=== PATIENT | female | born 1990 | race American Indian/Alaskan Native ===

== ENCOUNTER 2021-03-24 01:45 | Inpatient (IN) | payer SELFPAY ==
[2021-03-24] MEDS ORDERED: SODIUM CHLORIDE 0.9% 1000 ML 1,000 ML IV ONE (02:14)
[2021-03-24] MEDS ORDERED: ONDANSETRON 4 MG/2 ML INJ IV ONE (02:14)
[2021-03-24] MEDS ORDERED: KETOROLAC 30 MG/1 ML INJ IV STA (02:15)
[2021-03-24] MEDS ORDERED: HYOSCYAMINE SUBL 0.125 MG TAB SL ONE (02:15)
[2021-03-24 02:25] LABS: Bilirubin,Urine NEG (Negative); Blood,Urine NEG (Negative); Color,Urine Yellow (Yellow); Mucus,Urine FEW /HPF; Protein,Urine <15 mg/dL mg/dL (Negative); Urobilinogen,Urine < 2.0 mg/dL (<2.0); WBC,Urine < 1.0 /HPF (0.0-6.0)
--- NOTE | 2021-03-24 03:13 | Emergency Department Report ---
ED Abdominal Pain HPI - General Chief Complaint: Abdominal Pain Stated Complaint: LOWER ABD PAIN Time Seen by Provider: 03/24/21 02:14 Source: patient Mode of arrival: Ambulatory Limitations: No Limitations - History of Present Illness Initial Comments: 31-year-old female presents emerge department complaining of emerging and progressively worsening abdominal pain of unknown etiology pain is located to the right side and lower abdomen and worse with certain movements and palpation. She tried to take [id number] Gas-X which did not resolve the symptoms states that she is has similar episodes in the past but she is able to resolve with GERD medications but this pain did feel a little bit different. She reports no hemoptysis no hematemesis hematochezia, no diarrhea, no constipation, no fever, chills, sweats. MD Complaint: abdominal pain Severity scale (0 -10): 8 - Related Data Allergies Allergy/AdvReac Type Severity Reaction Status Date / Time No Known Allergies Allergy Unverified 03/24/21 01:59 ED Review of Systems ROS: Stated complaint: LOWER ABD PAIN Other details as noted in HPI Comment: All other systems reviewed and negative ED Past Medical Hx - Past Medical History Previous Medical History?: No - Surgical History Past Surgical History?: No ED Physical Exam - General Limitations: No Limitations General appearance: alert, in no apparent distress - Head Head exam: Present: atraumatic, normocephalic - Eye Eye exam: Present: normal appearance, PERRL, EOMI, scleral icterus Pupils: Present: normal accommodation - ENT ENT exam: Present: normal exam, normal orophraynx, mucous membranes moist, TM's normal bilaterally - Neck Neck exam: Present: normal inspection, full ROM - Respiratory Respiratory exam: Present: normal lung sounds bilaterally. Absent: respiratory distress, wheezes, rales, rhonchi, chest wall tenderness, accessory muscle use - Cardiovascular Cardiovascular Exam: Present: regular rate, normal rhythm. Absent: systolic murmur, diastolic murmur, rubs, gallop - GI/Abdominal GI/Abdominal exam: Present: soft, tenderness (Right lower quadrant and right hypochondriac area with palpation. No rebound tenderness is noted. No Rov[place], no [place], no [place] sign.), normal bowel sounds. Absent: guarding, rebound, hypoactive bowel sounds, organomegaly, mass, pulsatile mass - Extremities Exam Extremities exam: Present: normal inspection - Back Exam Back exam: Present: normal inspection - Neurological Exam Neurological exam: Present: alert, oriented X3 - Psychiatric Psychiatric exam: Present: normal affect, normal mood - Skin Skin exam: Present: warm, dry, intact, normal color. Absent: rash ED Course Vital Signs 03/24/21 03/24/21 01:51 02:37 Temperature 98.1 F Pulse Rate 80 Respiratory 16 18 Rate Blood Pressure 120/63 O2 Sat by Pulse 99 Oximetry - Consultations Consultation #1: 03/24/21 06:28 Plan is to consult general surgery after discussed the case with the radiologist whom advised of the very dilated appendix and strong suspicion for appendicitis and given the found on examination will start patient on antibiotics continue any necessary analgesia control and discussed the case with the general surgery. Attending aware ED Medical Decision Making - Lab Data Result diagrams: 03/24/21 02:56 03/24/21 02:56 Lab Results 03/24/21 03/24/21 03/24/21 Range/Units 02:56 02:56 02:56 WBC 9.8 (4.5-11.0) K/mm3 RBC 4.56 (3.65-5.03) M/mm3 Hgb 13.1 (10.1-14.3) gm/dl Hct 40.3 (30.3-42.9) % MCV 88 (79-97) fl MCH 29 (28-32) pg MCHC 33 (30-34) % RDW 13.1 L (13.2-15.2) % Plt Count 265 (140-440) K/mm3 Lymph % (Auto) 19.8 (13.4-35.0) % Lake % (Auto) 5.9 (0.0-7.3) % Eos % (Auto) 0.6 (0.0-4.3) % Baso % (Auto) 0.4 (0.0-1.8) % Lymph # (Auto) 1.9 (1.2-5.4) K/mm3 [place] # (Auto) 0.6 (0.0-0.8) K/mm3 Eos # (Auto) 0.1 (0.0-0.4) K/mm3 Baso # (Auto) 0.0 (0.0-0.1) K/mm3 Seg Neutrophils % 73.3 H (40.0-70.0) % Seg Neutrophils # 7.2 (1.8-7.7) K/mm3 Sodium 136 L (137-145) mmol/L Potassium 4.1 (3.6-5.0) mmol/L Chloride 102.0 (98-107) mmol/L Carbon Dioxide 25 (22-30) mmol/L Anion Gap 13 mmol/L BUN 6 L (7-17) mg/dL Creatinine 0.6 (0.6-1.2) mg/dL Estimated GFR > 60 ml/min BUN/Creatinine Ratio 10 % Glucose 113 H (65-100) mg/dL Calcium 8.8 (8.4-10.2) mg/dL Total Bilirubin 0.40 (0.1-1.2) mg/dL Direct Bilirubin < 0.2 (0-0.2) mg/dL Indirect Bilirubin 0.2 mg/dL AST 15 (5-40) units/L ALT 17 (7-56) units/L Alkaline Phosphatase 55 (35-129) units/L Total Protein 7.0 (6.3-8.2) g/dL Albumin 3.8 L (3.9-5) g/dL Albumin/Globulin Ratio 1.2 % Lipase 24 (13-60) units/L HCG, Qual Negative (Negative) Urine Color (Yellow) Urine Turbidity (Clear) Urine pH (5.0-7.0) Ur Specific [place] (1.003-1.030) Urine Protein (Negative) mg/dL Urine Glucose (UA) (Negative) mg/dL Urine Ketones (Negative) mg/dL Urine Blood (Negative) Urine Nitrite (Negative) Urine Bilirubin (Negative) Urine Urobilinogen (<2.0) mg/dL Ur Leukocyte Esterase (Negative) Urine WBC (Auto) (0.0-6.0) /HPF Urine RBC (Auto) (0.0-6.0) /HPF U Epithel Cells (Auto) (0-13.0) /HPF Urine Mucus /HPF 03/24/21 Range/Units Unknown WBC (4.5-11.0) K/mm3 RBC (3.65-5.03) M/mm3 Hgb (10.1-14.3) gm/dl Hct (30.3-42.9) % MCV (79-97) fl MCH (28-32) pg MCHC (30-34) % RDW (13.2-15.2) % Plt Count (140-440) K/mm3 Lymph % (Auto) (13.4-35.0) % [place] % (Auto) (0.0-7.3) % Eos % (Auto) (0.0-4.3) % Baso % (Auto) (0.0-1.8) % Lymph # (Auto) (1.2-5.4) K/mm3 [place] # (Auto) (0.0-0.8) K/mm3 Eos # (Auto) (0.0-0.4) K/mm3 Baso # (Auto) (0.0-0.1) K/mm3 Seg Neutrophils % (40.0-70.0) % Seg Neutrophils # (1.8-7.7) K/mm3 Sodium (137-145) mmol/L Potassium (3.6-5.0) mmol/L Chloride (98-107) mmol/L Carbon Dioxide (22-30) mmol/L Anion Gap mmol/L BUN (7-17) mg/dL Creatinine (0.6-1.2) mg/dL Estimated GFR ml/min BUN/Creatinine Ratio % Glucose (65-100) mg/dL Calcium (8.4-10.2) mg/dL Total Bilirubin (0.1-1.2) mg/dL Direct Bilirubin (0-0.2) mg/dL Indirect Bilirubin mg/dL AST (5-40) units/L ALT (7-56) units/L Alkaline Phosphatase (35-129) units/L Total Protein (6.3-8.2) g/dL Albumin (3.9-5) g/dL Albumin/Globulin Ratio % Lipase (13-60) units/L HCG, Qual (Negative) Urine Color Yellow (Yellow) Urine Turbidity Clear (Clear) Urine pH 6.0 (5.0-7.0) Ur Specific [place] 1.010 (1.003-1.030) Urine Protein <15 mg/dl (Negative) mg/dL Urine Glucose (UA) Neg (Negative) mg/dL Urine Ketones Neg (Negative) mg/dL Urine Blood Neg (Negative) Urine Nitrite Neg (Negative) Urine Bilirubin Neg (Negative) Urine Urobilinogen < 2.0 (<2.0) mg/dL Ur Leukocyte Esterase Neg (Negative) Urine WBC (Auto) < 1.0 (0.0-6.0) /HPF Urine RBC (Auto) 1.0 (0.0-6.0) /HPF U Epithel Cells (Auto) 1.0 (0-13.0) /HPF Urine Mucus Few /HPF - Radiology Data Radiology results: report reviewed [facility] [address] [place] [address] Cat Scan Report Signed Patient: REESE SOLIMAN MR#: [id number] 3 : 1990 Acct:[id number] Age/Sex: 31 / F ADM Date: 03/24/21 Loc: ED Attending Dr: Ordering Physician: ELSA KING Date of Service: 03/24/21 Procedure(s): CT abdomen pelvis w con Accession Number(s): [id number] cc: ELSA KING CT ABDOMEN AND PELVIS WITH CONTRAST HISTORY: Abdominal Pain. COMPARISON: None. TECHNIQUE: CT images of the abdomen and pelvis were obtained following administration of intravenous contrast. All CT scans at this location are performed using CT dose reduction for ALARA by means of automated exposure control. CONTRAST: 100 ml of intravenous contrast administered. FINDINGS: Lungs/bones: Lung bases are clear Abdomen/pelvis: Liver, spleen, adrenal glands, and pelvis, gallbladder and upper GI tract appear normal. Bilateral kidneys appear normal.. The appendix is dilated and fluid- filled. Calcifications are noted. Small amount of free fluid is seen in the pelvis. No bowel obstruction is identified. Appendix measures 1.5 cm IMPRESSION: 1. Marked dilatation of the appendix. Calcifications suggesting appendicoliths. Early appendicitis is not excluded. COMMUNICATION: Time of Communication (IRRIGATION SYSTEM OPERATOR/CDT): 440 Signer Name: Kalyan Mason MD Signed: 03/24/2021 5:40 AM Workstation Name: [id number] Transcribed By: CW Dictated By: PASTORA MASON MD Electronically Authenticated By: PASTORA MASON MD Signed Date/Time: 03/24/21539 DD/ 4 TD/TT: Print Cancel Critical care attestation.: If time is entered above; I have spent that time in minutes in the direct care of this critically ill patient, excluding procedure time. ED Disposition Clinical Impression: Appendicitis Disposition: ADMITTED INPATIENT Is pt being admited?: Yes Does the pt Need Aspirin: No Condition: Stable Instructions: Abdominal Pain (ED)
[2021-03-24 03:24] LABS: Basophils % (Auto) 0.4 % (0.0-1.8); Eosinophils # (Auto) 0.1 K/mm3 (0.0-0.4); Eosinophils % (Auto) 0.6 % (0.0-4.3); Hematocrit 40.3 % (30.3-42.9); Hemoglobin 13.1 gm/dl (10.1-14.3); Lymphocytes # (Auto) 1.9 K/mm3 (1.2-5.4); Lymphocytes % (Auto) 19.8 % (13.4-35.0); Mean Corpuscular HGB Conc 33 % (30-34); Mean Corpuscular Volume 88 fl (79-97); Monocytes # (Auto) 0.6 K/mm3 (0.0-0.8); Monocytes % (Auto) 5.9 % (0.0-7.3); Platelet Count 265 K/mm3 (140-440); Red Blood Count 4.56 M/mm3 (3.65-5.03); Red Cell Distribution Width 13.1 % (13.2-15.2)
[2021-03-24 03:43] LABS: Alanine Aminotransferase 17 units/L (7-56); Albumin 3.8 g/dL (3.9-5); Blood Urea Nitrogen 6 mg/dL (7-17); Calcium 8.8 mg/dL (8.4-10.2); Hemolysis Index 3
[2021-03-24 03:44] LABS: BUN/Creatinine Ratio 10; Bilirubin,Direct < 0.2 mg/dL (0-0.2)
--- NOTE | 2021-03-24 05:45 | Cat Scan Report ---
CT ABDOMEN AND PELVIS WITH CONTRAST HISTORY: Abdominal Pain. COMPARISON: None. TECHNIQUE: CT images of the abdomen and pelvis were obtained following administration of intravenous contrast. All CT scans at this location are performed using CT dose reduction for ALARA by means of automated exposure control. CONTRAST: 100 ml of intravenous contrast administered. FINDINGS: Lungs/bones: Lung bases are clear Abdomen/pelvis: Liver, spleen, adrenal glands, and pelvis, gallbladder and upper GI tract appear nor mal. Bilateral kidneys appear normal.. The appendix is dilated and fluid-filled. Calcifications are n oted. Small amount of free fluid is seen in the pelvis. No bowel obstruction is identified. Appendix measures 1.5 cm IMPRESSION: 1. Marked dilatation of the appendix. Calcifications suggesting appendicoliths. Early appendicitis is not excluded. COMMUNICATION: Time of Communication (CLIENT SERVICES MANAGER/CDT): 440 Signer Name: Kalyan Mason MD Signed: 03/24/2021 5:40 AM Workstation Name: [id number]
[2021-03-24] MEDS ORDERED: PIPERACIL/TAZOBACTA 4.5/NS 100 4.5 GM/100 ML VIAL IV ONE (06:24)
[2021-03-24] MEDS ORDERED: MORPHINE 4 MG/1 ML INJ IV PRN (07:31)
[2021-03-24] MEDS ORDERED: MORPHINE 2 MG/1 ML INJ IV PRN (08:00)
[2021-03-24] MEDS ORDERED: ONDANSETRON 4 MG/2 ML INJ IV PRN ×2 (08:00→14:30)
[2021-03-24] MEDS ORDERED: ACETAMINOPHEN 325 MG TAB PO PRN (08:00)
[2021-03-24] MEDS: HEPARIN 5,000 UNIT/1 ML VIAL SUB-Q SCH ×3 (09:04→21:05)
[2021-03-24] MEDS ORDERED: SCOPOLAMINE TRANSDERMAL PATCH 72 HR TD SCH (10:30)
--- NOTE | 2021-03-24 10:32 | Anesthesia Consultation ---
Anesthesia Consult and Med Hx Date of service: 03/24/21 - Airway Anesthetic Teeth Evaluation: Good, Caps (#8 and 9) ROM Head & Neck: Adequate Mental/Hyoid Distance: Adequate Mallampati Class: Class II Intubation Access Assessment: Probably Good - Pre-Operative Health Status ASA Pre-Surgery Classification: ASA1, Emergency Proposed Anesthetic Plan: General - Additional Comments Anesthesia Medical History Comments: acute appendicitis
--- NOTE | 2021-03-24 10:33 | Anesthesia Day of Surgery ---
Anesthesia Day of Surgery - Day of Surgery Patient Examined: Yes Patient H&P Reviewed: Yes Patient is NPO: Yes
--- NOTE | 2021-03-24 10:46 | History and Physical Report ---
History of Present Illness Date of examination: 03/24/21 Date of admission: 03/24/21 06:37 Chief complaint: Abdominal pain History of present illness: 31-year-old female with past medical history of GERD who presents to the emergency department with complaints of abdominal pain. Patient reports the pain in the right lower quadrant. Patient denies any nausea or vomiting. No chest pain or shortness of breath. No headache or visual disturbances. No fever chills. CT scan of the abdomen reveals marked dilatation of the appendix and calcifications suggestive of appendicoliths and appendicitis. Past History Past Medical History: GERD Past Surgical History: No surgical history Social history: no significant social history Family history: no significant family history Medications and Allergies Allergies Allergy/AdvReac Type Severity Reaction Status Date / Time No Known Allergies Allergy Verified 03/24/21 06:38 Active Meds: Active Medications Acetaminophen (Acetaminophen 325 Mg Tab) 650 mg PO Q4H PRN PRN Reason: Pain MILD(1-3)/Fever >100.5/DONG Heparin Sodium (Porcine) (Heparin 5,000 Unit/1 Ml Vial) 5,000 unit SUB-Q Q8HR [facility] Last Admin: 03/24/21 09:04 Dose: 5,000 unit Documented by: Sodium Chloride (Nacl 0.9% 1000 Ml) 1,000 mls @ 100 mls/hr IV DIRECT ZENA Piperacillin Sod/Tazobactam Sod (Zosyn/Ns 4.5gm/100ml) 4.5 gm in 100 mls @ 200 mls/hr IV Q6H [facility]; Protocol Morphine Sulfate (Morphine 2 Mg/1 Ml Inj) 1 mg IV Q4H PRN PRN Reason: Pain, Moderate (4-6) Morphine Sulfate (Morphine 2 Mg/1 Ml Inj) 2 mg IV Q4H PRN PRN Reason: Pain , Severe (7-10) Ondansetron HCl (Ondansetron 4 Mg/2 Ml Inj) 4 mg IV Q8H PRN PRN Reason: Nausea And Vomiting Scopolamine (Scopolamine Transdermal Patch 72 Hr) 1 each TD ONCE@1030 [facility] Stop: 03/24/21 20:00 Sodium Chloride (Sodium Chloride 0.9% 10 Ml Flush Syringe) 10 ml IV BID [facility] Last Admin: 03/24/21 10:17 Dose: 10 ml Documented by: Sodium Chloride (Sodium Chloride 0.9% 10 Ml Flush Syringe) 10 ml IV PRN PRN PRN Reason: LINE FLUSH Review of Systems All systems: negative Exam - Constitutional Vitals: Temp Pulse Resp BP Pulse Ox 98.1 F 80 18 120/63 100 03/24/21 01:51 03/24/21 01:51 03/24/21 07:25 03/24/21 01:51 03/24/21 07:25 General appearance: Present: no acute distress, well-nourished - EENT Eyes: Present: PERRL ENT: hearing intact, clear oral mucosa - Neck Neck: Present: supple, normal ROM - Respiratory Respiratory effort: normal Respiratory: bilateral: CTA - Cardiovascular Heart Sounds: Present: S1 & S2. Absent: rub, click - Extremities Extremities: pulses symmetrical, No edema Peripheral Pulses: within normal limits - Abdominal General gastrointestinal: Present: soft, non-tender, non-distended, normal bowel sounds Female genitourinary: Present: normal - Integumentary Integumentary: Present: clear, warm, dry - Musculoskeletal Musculoskeletal: gait normal, strength equal bilaterally - Psychiatric Psychiatric: appropriate mood/affect, intact judgment & insight - Neurologic Neurologic: CNII-XII intact, moves all extremities Results - Labs CBC & Chem 7: 03/24/21 02:56 03/24/21 02:56 Labs: Laboratory Last Values WBC 9.8 K/mm3 (4.5-11.0) 03/24/21 02:56 RBC 4.56 M/mm3 (3.65-5.03) 03/24/21 02:56 Hgb 13.1 gm/dl (10.1-14.3) 03/24/21 02:56 Hct 40.3 % (30.3-42.9) 03/24/21 02:56 MCV 88 fl (79-97) 03/24/21 02:56 MCH 29 pg (28-32) 03/24/21 02:56 MCHC 33 % (30-34) 03/24/21 02:56 RDW 13.1 % (13.2-15.2) L 03/24/21 02:56 Plt Count 265 K/mm3 (140-440) 03/24/21 02:56 Lymph % (Auto) 19.8 % (13.4-35.0) 03/24/21 02:56 [place] % (Auto) 5.9 % (0.0-7.3) 03/24/21 02:56 Eos % (Auto) 0.6 % (0.0-4.3) 03/24/21 02:56 Baso % (Auto) 0.4 % (0.0-1.8) 03/24/21 02:56 Lymph # (Auto) 1.9 K/mm3 (1.2-5.4) 03/24/21 02:56 [place] # (Auto) 0.6 K/mm3 (0.0-0.8) 03/24/21 02:56 Eos # (Auto) 0.1 K/mm3 (0.0-0.4) 03/24/21 02:56 Baso # (Auto) 0.0 K/mm3 (0.0-0.1) 03/24/21 02:56 Seg Neutrophils % 73.3 % (40.0-70.0) H 03/24/21 02:56 Seg Neutrophils # 7.2 K/mm3 (1.8-7.7) 03/24/21 02:56 Sodium 136 mmol/L (137-145) L 03/24/21 02:56 Potassium 4.1 mmol/L (3.6-5.0) 03/24/21 02:56 Chloride 102.0 mmol/L (98-107) 03/24/21 02:56 Carbon Dioxide 25 mmol/L (22-30) 03/24/21 02:56 Anion Gap 13 mmol/L 03/24/21 02:56 BUN 6 mg/dL (7-17) L 03/24/21 02:56 Creatinine 0.6 mg/dL (0.6-1.2) 03/24/21 02:56 Estimated GFR > 60 ml/min 03/24/21 02:56 BUN/Creatinine Ratio 10 % 03/24/21 02:56 Glucose 113 mg/dL (65-100) H 03/24/21 02:56 Calcium 8.8 mg/dL (8.4-10.2) 03/24/21 02:56 Total Bilirubin 0.40 mg/dL (0.1-1.2) 03/24/21 02:56 Direct Bilirubin < 0.2 mg/dL (0-0.2) 03/24/21 02:56 Indirect Bilirubin 0.2 mg/dL 03/24/21 02:56 AST 15 units/L (5-40) 03/24/21 02:56 ALT 17 units/L (7-56) 03/24/21 02:56 Alkaline Phosphatase 55 units/L (35-129) 03/24/21 02:56 Total Protein 7.0 g/dL (6.3-8.2) 03/24/21 02:56 Albumin 3.8 g/dL (3.9-5) L 03/24/21 02:56 Albumin/Globulin Ratio 1.2 % 03/24/21 02:56 Lipase 24 units/L (13-60) 03/24/21 02:56 HCG, Qual Negative (Negative) 03/24/21 02:56 Urine Color Yellow (Yellow) 03/24/21 Unknown Urine Turbidity Clear (Clear) 03/24/21 Unknown Urine pH 6.0 (5.0-7.0) 03/24/21 Unknown Ur Specific [place] 1.010 (1.003-1.030) 03/24/21 Unknown Urine Protein <15 mg/dl mg/dL (Negative) 03/24/21 Unknown Urine Glucose (UA) Neg mg/dL (Negative) 03/24/21 Unknown Urine Ketones Neg mg/dL (Negative) 03/24/21 Unknown Urine Blood Neg (Negative) 03/24/21 Unknown Urine Nitrite Neg (Negative) 03/24/21 Unknown Urine Bilirubin Neg (Negative) 03/24/21 Unknown Urine Urobilinogen < 2.0 mg/dL (<2.0) 03/24/21 Unknown Ur Leukocyte Esterase Neg (Negative) 03/24/21 Unknown Urine WBC (Auto) < 1.0 /HPF (0.0-6.0) 03/24/21 Unknown Urine RBC (Auto) 1.0 /HPF (0.0-6.0) 03/24/21 Unknown U Epithel Cells (Auto) 1.0 /HPF (0-13.0) 03/24/21 Unknown Urine Mucus Few /HPF 03/24/21 Unknown Assessment and Plan Assessment and plan: Acute appendicitis. Await general surgery evaluation. Patient reportedly is scheduled to undergo appendectomy. Continue supportive care postoperatively. Continue IV antibiotics of Zosyn. GERD. PPI.
--- NOTE | 2021-03-24 11:15 | Consultation ---
History of Present Illness Consult date: 03/24/21 Reason for consult: abdominal pain Chief complaint: Abdominal pain - History of present illness History of present illness: 31-year-old female with no past medical history who presents to the emergency ro om with 1 day history of worsening lower abdominal pain. The patient states the pain was first present in the suprapubic area and then migrated to the right lower quadrant and now is localized. The pain is sharp. No alleviating or exacerbating factors. The patient did try Gas-X which did not help. She has never had pain like this before. She admits to nausea and vomiting (nonbilious/nonbloody). No fevers or chills, chest pain, shortness of breath. Work-up in the ER included a CT scan which revealed a dilated appendix with a fecalith consistent with appendicitis. Past History Past Medical History: GERD Past Surgical History: No surgical history Social history: no significant social history Family history: no significant family history Medications and Allergies Allergies Allergy/AdvReac Type Severity Reaction Status Date / Time No Known Allergies Allergy Verified 03/24/21 06:38 Active Meds: Active Medications Acetaminophen (Acetaminophen 325 Mg Tab) 650 mg PO Q4H PRN PRN Reason: Pain MILD(1-3)/Fever >100.5/DONG Heparin Sodium (Porcine) (Heparin 5,000 Unit/1 Ml Vial) 5,000 unit SUB-Q Q8HR [facility] Last Admin: 03/24/21 09:04 Dose: 5,000 unit Documented by: Sodium Chloride (Nacl 0.9% 1000 Ml) 1,000 mls @ 100 mls/hr IV DIRECT [facility] Piperacillin Sod/Tazobactam Sod (Zosyn/Ns 4.5gm/100ml) 4.5 gm in 100 mls @ 200 mls/hr IV Q6H [facility]; Protocol Morphine Sulfate (Morphine 2 Mg/1 Ml Inj) 1 mg IV Q4H PRN PRN Reason: Pain, Moderate (4-6) Morphine Sulfate (Morphine 2 Mg/1 Ml Inj) 2 mg IV Q4H PRN PRN Reason: Pain , Severe (7-10) Ondansetron HCl (Ondansetron 4 Mg/2 Ml Inj) 4 mg IV Q8H PRN PRN Reason: Nausea And Vomiting Scopolamine (Scopolamine Transdermal Patch 72 Hr) 1 each TD ONCE@1030 [facility] Stop: 03/24/21 20:00 Sodium Chloride (Sodium Chloride 0.9% 10 Ml Flush Syringe) 10 ml IV BID [facility] Last Admin: 03/24/21 10:17 Dose: 10 ml Documented by: Sodium Chloride (Sodium Chloride 0.9% 10 Ml Flush Syringe) 10 ml IV PRN PRN PRN Reason: LINE FLUSH Review of Systems All systems: negative (10 point ROS performed and negative except for that listed in HPI) Exam Vital Signs Temp Pulse Resp BP Pulse Ox 98.1 F 80 16 120/63 99 03/24/21 01:51 03/24/21 01:51 03/24/21 01:51 03/24/21 01:51 03/24/21 01:51 Narrative exam: Gen.: Awake, alert, oriented x3. No apparent distress ENT: Trachea midline. No lymphadenopathy. No scleral icterus or conjunctival pallor CV: S1, S2 present Respiratory: No audible wheezes Abdomen: Soft, nondistended, right lower quadrant tenderness to palpation. Positive rebound. No guarding or rigidity Extremities: No clubbing, cyanosis, edema Results - Labs 03/24/21 02:56 03/24/21 02:56 Abnormal lab results 03/24/21 03/24/21 Range/Units 02:56 02:56 RDW 13.1 L (13.2-15.2) % Seg Neutrophils % 73.3 H (40.0-70.0) % Sodium 136 L (137-145) mmol/L BUN 6 L (7-17) mg/dL Glucose 113 H (65-100) mg/dL Albumin 3.8 L (3.9-5) g/dL Diabetes panel 03/24/21 Range/Units 02:56 Sodium 136 L (137-145) mmol/L Potassium 4.1 (3.6-5.0) mmol/L Chloride 102.0 (98-107) mmol/L Carbon Dioxide 25 (22-30) mmol/L BUN 6 L (7-17) mg/dL Creatinine 0.6 (0.6-1.2) mg/dL Glucose 113 H (65-100) mg/dL Calcium 8.8 (8.4-10.2) mg/dL AST 15 (5-40) units/L ALT 17 (7-56) units/L Alkaline Phosphatase 55 (35-129) units/L Total Protein 7.0 (6.3-8.2) g/dL Albumin 3.8 L (3.9-5) g/dL Calcium panel 03/24/21 Range/Units 02:56 Calcium 8.8 (8.4-10.2) mg/dL Albumin 3.8 L (3.9-5) g/dL Pituitary panel 03/24/21 Range/Units 02:56 Sodium 136 L (137-145) mmol/L Potassium 4.1 (3.6-5.0) mmol/L Chloride 102.0 (98-107) mmol/L Carbon Dioxide 25 (22-30) mmol/L BUN 6 L (7-17) mg/dL Creatinine 0.6 (0.6-1.2) mg/dL Glucose 113 H (65-100) mg/dL Calcium 8.8 (8.4-10.2) mg/dL Adrenal panel 03/24/21 Range/Units 02:56 Sodium 136 L (137-145) mmol/L Potassium 4.1 (3.6-5.0) mmol/L Chloride 102.0 (98-107) mmol/L Carbon Dioxide 25 (22-30) mmol/L BUN 6 L (7-17) mg/dL Creatinine 0.6 (0.6-1.2) mg/dL Glucose 113 H (65-100) mg/dL Calcium 8.8 (8.4-10.2) mg/dL Total Bilirubin 0.40 (0.1-1.2) mg/dL AST 15 (5-40) units/L ALT 17 (7-56) units/L Alkaline Phosphatase 55 (35-129) units/L Total Protein 7.0 (6.3-8.2) g/dL Albumin 3.8 L (3.9-5) g/dL - Imaging CT scan - abdomen: report reviewed, image reviewed CT scan - pelvis: report reviewed, image reviewed Assessment and Plan 31-year-old female with acute appendicitis Plan: 1. NPO 2. IVF 3. IV abx 4. prn pain control 5. DVT ppx 6. Recommend appendectomy. I discussed all risks, benefits, alternatives to surgery with the patient. All questions answered and consent obtained. We will proceed to the OR today. Patient tried to reach multiple family members while I was in the room with her without success. She will notify her family about plans for surgery. Thank you for this consultation. Please call with any questions or concerns. Evaluation and treatment of this patient was during the time of the national and state emergency arising from COVID19 coronavirus pandemic. Treatment and procedures performed meet the current and available best practice and guidelines for patient during the COVID pandemic.
[2021-03-24] MEDS ORDERED: BUPIVACAINE/PF (0.5%) 5 MG/1 ML 30 ML VIAL INFILTRATI ONE ×2 (13:48→15:11)
[2021-03-24] MEDS ORDERED: LIDOCAINE (1%) 10 MG/1 ML VIAL 20 ML MDV ONE (13:48)
[2021-03-24] MEDS ORDERED: ROCURONIUM 50 MG/5 ML INJ IV ONE (14:24)
[2021-03-24] MEDS ORDERED: LIDOCAINE MPF (2%) 20 MG/1 ML VIAL 5 ML ONE (14:24)
[2021-03-24] MEDS ORDERED: propofoL 200 MG/20 ML VIAL IV ONE (14:25)
[2021-03-24] MEDS ORDERED: fentaNYL 100 MCG/2 ML INJ ONE (14:25)
[2021-03-24] MEDS ORDERED: dexAMETHasone 20 MG/5 ML VIAL ONE (14:30)
[2021-03-24] MEDS ORDERED: ONDANSETRON 4 MG/2 ML INJ ONE (14:30)
[2021-03-24] MEDS ORDERED: KETOROLAC 30 MG/1 ML INJ ONE (14:30)
[2021-03-24] MEDS ORDERED: HYDROmorphone 1 MG/1 ML INJ IV PRN (14:30)
[2021-03-24] MEDS ORDERED: LACTATED RINGERS 1,000 ML ONE (14:34)
[2021-03-24] MEDS ORDERED: LIDOCAINE (1%) 10 MG/1 ML VIAL 20 ML MDV INFILTRATI ONE (15:11)
[2021-03-24] MEDS ORDERED: SODIUM CHLORIDE 0.9% IRR 1,500 ML BOTTLE IR ONE (15:11)
--- NOTE | 2021-03-24 15:53 | Operative Report ---
Operative Report Operative Report: Date of operation: 03/24/2021 Preoperative diagnosis: acute appendicitis Postoperative diagnosis: acute appendicitis Procedure performed: Laparoscopic appendectomy Surgeon: Conner Garza DO Anesthesia: GETA Findings: Entire appendix was dilated, thickened, inflamed without evidence of perforation EBL:<10cc Specimen: appendix Disposition/Condition: stable to PACU HPI and indication: 31 yo F who presented to ER with RLQ pain, n/v. She was found to have acute appendicitis on CT scan. Appendectomy was recommended. All risks, benefits, alternatives to surgery were discussed with the patient questions answered. Consent was obtained. Procedure in detail: Patient was identified in the preop area and taken back to the OR and placed on the OR table in supine position. After anesthesia was induced a gottlieb catheter was steriley placed by the circulating nurse. The left arm was tucked and all bony prominences padded appropriately. The abdomen was prepped and draped in the usual sterile fashion and a timeout performed. Local anesthetic was infiltrated into all skin incision sites. Of note there was an incidental small fat-containing umbilical hernia already present A supraumbilical incision was made and veress needle inserted. The positioning of the veress needle was confirmed using the saline drop test and the abdomen insufflated to 15 mmHg without incident. The Veress needle was then removed and a 5mm Optiview trocar was placed through the supraumbilical incision. The abdomen was inspected and no underlying injury to the abdominal structures was identified. There were omental adhesions to the right lower quadrant as well as the umbilical area. The patient was placed in Trendelenburg and tilted to the left. The appendix was identified. A 12 mm LLQ trocar and 5 mm suprapubic trocar were placed under direct visualization. The appendix was noted to be dilated, inflamed and thickened. No evidence of perforation. There was physiologic free fluid in the pelvis. Omental adhesions down using the harmonic. Embryologic adhesions from the appendix to the lateral abdominal wall and cecum were dissected very meticulously using the harmonic scalpel. The mesentery of the appendix was ligated using the harmonic scalpel. The base of the appendix was transected using an ethicon flex stapler 45mm white load. The appendix was placed into an endocatch bag and removed via the 12 mm port. This was passed off the table as specimen. The staple line and mesentery were then inspected and no bleeding visualized. The staple line was complete and flush against the cecum. The patient was placed in neutral position. The 12 mm port fascia was closed with a single interrupted 0 vicryl stitch using the Jasson Greene device. The 5 mm port was removed and the 0 Vicryl fascial stitch placed using the Jasson Greene. The remaining port was removed under direct visualization and the abdomen desufflated. All skin incisions were closed using 4-0 monocryl subcuticular stitches and skin glue. Local anesthetic was once again infiltrated into all skin incision sites. At the end of the case, all sponge, instrument, sharp counts were correct x2. The patient was awoken from anesthesia, gottlieb catheter removed, and she was taken to PACU in stable condition.
--- NOTE | 2021-03-24 16:47 | Post Anesthesia Evaluation ---
- Post Anesthesia Evaluation Patient Participated: Yes Airway Patent: Yes Stable Respiratory Function: Yes Nausea/Vomiting: No Temp > 96.8F: Yes Pain Manageable: Yes Adequeate Hydration: Yes Anesthesia Complications: No
[2021-03-24] MEDS: MORPHINE 2 MG/1 ML INJ IV PRN (17:45)
[2021-03-24] MEDS: SODIUM CHLORIDE 0.9% 1000 ML 1,000 ML IV SCH (17:46)
[2021-03-24] MEDS: PIPERACIL/TAZOBACTA 4.5/NS 100 4.5 GM/100 ML VIAL IV SCH ×2 (17:46→20:16)
[2021-03-24] MEDS: HYDROcodone/ACETAMINOPHEN 5-325 MG TAB PO PRN (21:09)
[2021-03-25] MEDS: PIPERACIL/TAZOBACTA 4.5/NS 100 4.5 GM/100 ML VIAL IV SCH ×2 (02:55→09:37)
[2021-03-25] MEDS: MORPHINE 2 MG/1 ML INJ IV PRN (03:36)
[2021-03-25] MEDS: SODIUM CHLORIDE 0.9% 1000 ML 1,000 ML IV SCH (03:41)
[2021-03-25 07:51] LABS: Basophils % (Auto) 0.1 % (0.0-1.8); Hematocrit 39.1 % (30.3-42.9); Hemoglobin 12.4 gm/dl (10.1-14.3); Lymphocytes # (Auto) 1.6 K/mm3 (1.2-5.4); Lymphocytes % (Auto) 11.4 % (13.4-35.0); Mean Corpuscular HGB Conc 32 % (30-34); Mean Corpuscular Volume 89 fl (79-97); Monocytes # (Auto) 0.8 K/mm3 (0.0-0.8); Monocytes % (Auto) 5.7 % (0.0-7.3); Platelet Count 247 K/mm3 (140-440); Red Blood Count 4.42 M/mm3 (3.65-5.03); Red Cell Distribution Width 12.8 % (13.2-15.2)
[2021-03-25 08:10] LABS: Blood Urea Nitrogen 8 mg/dL (7-17); Calcium 8.3 mg/dL (8.4-10.2); Hemolysis Index 5
[2021-03-25 08:18] LABS: BUN/Creatinine Ratio 11
[2021-03-25] MEDS: HYDROcodone/ACETAMINOPHEN 5-325 MG TAB PO PRN (09:33)
[2021-03-25] MEDS: HEPARIN 5,000 UNIT/1 ML VIAL SUB-Q SCH (09:36)
--- NOTE | 2021-03-25 10:21 | Discharge Summary ---
<KELECHI LEIVA - Last Filed: 03/25/21 09:56> Providers - Providers Date of Admission: 03/24/21 06:37 Date of discharge: 03/25/21 Attending physician: KELECHI LEIVA 03/24/21 06:44 Consult to Physician [CONS] Routine Comment: Consulting Provider: DEBBY FRYE Physician Instructions: Reason For Exam: Appendicitis Primary care physician: IMAGING ANALYST Hospitalization Reason for admission: Appendicitis Condition: Stable Hospital course: 31-year-old female with no past medical history who presented to the emergency room with 1 day history of worsening lower abdominal pain. The patient reported nausea and vomiting (nonbilious/nonbloody). No fevers or chills, chest pain, shortness of breath. Work-up in the ER included a CT scan which revealed a dilated appendix with a fecalith consistent with appendicitis. The patient was admitted with diagnosis of acute appendicitis. Patient was admitted to medical floor and started on IV antibiotics and IV fluid hydration. Patient was seen by surgery in consultation who performed laparoscopic appendectomy. Patient tolerated diet postoperatively and did well. Patient will likely discharge home later today if continues to tolerate diet and okay with surgery. Dedicated discharge time 32 minutes Disposition: 01 HOME / SELF CARE / HOMELESS Final Discharge Diagnosis (Prints w/discharge instructions): acute appendicitis Core Measure Documentation - Palliative Care Palliative Care/ Comfort Measures: Not Applicable - Core Measures Any of the following diagnoses?: none Exam - Constitutional Vitals: Temp Pulse Resp BP Pulse Ox 98.8 F 67 18 115/59 99 03/24/21 21:35 03/24/21 21:35 03/24/21 21:35 03/24/21 21:35 03/24/21 21:35 General appearance: Present: no acute distress, well-nourished - EENT Eyes: Present: PERRL ENT: hearing intact, clear oral mucosa - Neck Neck: Present: supple, normal ROM - Respiratory Respiratory effort: normal Respiratory: bilateral: CTA - Cardiovascular Heart Sounds: Present: S1 & S2. Absent: rub, click - Extremities Extremities: pulses symmetrical, No edema Peripheral Pulses: within normal limits - Abdominal General gastrointestinal: Present: soft, non-tender, non-distended, normal bowel sounds Female genitourinary: Present: normal - Integumentary Integumentary: Present: clear, warm, dry - Musculoskeletal Musculoskeletal: gait normal, strength equal bilaterally - Psychiatric Psychiatric: appropriate mood/affect, intact judgment & insight - Neurologic Neurologic: CNII-XII intact, moves all extremities Plan Activity: advance as tolerated Weight Bearing Status: Weight Bear as Tolerated Diet: regular Follow up with: PRIMARY CARE, [Primary Care Provider] - 7 Days Prescriptions: Fluconazole [Diflucan TAB] 200 mg PO QDAY #2 tablet HYDROcodone/APAP 5-325 [[place] 5-325 mg TAB] 1 each PO Q6H PRN #10 tablet PRN Reason: Pain, Moderate (4-6) <DEBBY FRYE - Last Filed: 03/25/21 10:55> Providers - Providers Date of Admission: 03/24/21 06:37 Attending physician: KELECHI LEIVA 03/24/21 06:44 Consult to Physician [CONS] Routine Comment: Consulting Provider: DEBBY FRYE Physician Instructions: Reason For Exam: Appendicitis Primary care physician: IMAGING ANALYST Exam - Constitutional Vitals: Temp Pulse Resp BP Pulse Ox 98.8 F 67 18 115/59 99 03/24/21 21:35 03/24/21 21:35 03/24/21 21:35 03/24/21 21:35 03/24/21 21:35 Plan Wound: open to air, per your surgeon's advice
[2021-03-25 12:30] VITALS: BP 98/55
--- NOTE | 2021-03-25 17:21 | Progress Note ---
Assessment and Plan 31 yo F s/p lap appendectomy, POD 1 1. Reg diet 2. IVF 3. dc abx 4. prn pain control 5. OOB 6. Ok to dc home. Instructions given. Patient to return home to [facility] next week. Advised her to follow up with PCP and call surgery office if any questions. Subjective Date of service: 03/25/21 Narrative: Pt seen and examined. No acute complaints. Tolerated diet. Pain well controlled. No f/c. Objective Vital Signs - 12hr 03/25/21 03/25/21 11:30 11:31 Temperature 98.1 F Pulse Rate 58 L 57 L Respiratory 19 Rate Blood Pressure 98/55 O2 Sat by Pulse 96 96 Oximetry - General physical appearance Narrative Exam: Gen: AAOx3. NAD CV: S1, S2+ resp: even and unlabored Abd: soft, ND. mild conchis-incisional pain. Incisions c/d/i Ext: No c/c/e - Labs 03/25/21 07:24 03/25/21 07:24 Diabetes panel 03/25/21 Range/Units 07:24 Sodium 140 (137-145) mmol/L Potassium 4.4 (3.6-5.0) mmol/L Chloride 106.3 (98-107) mmol/L Carbon Dioxide 24 (22-30) mmol/L BUN 8 (7-17) mg/dL Creatinine 0.7 (0.6-1.2) mg/dL Glucose 112 H (65-100) mg/dL Calcium 8.3 L (8.4-10.2) mg/dL Calcium panel 03/25/21 Range/Units 07:24 Calcium 8.3 L (8.4-10.2) mg/dL Pituitary panel 03/25/21 Range/Units 07:24 Sodium 140 (137-145) mmol/L Potassium 4.4 (3.6-5.0) mmol/L Chloride 106.3 (98-107) mmol/L Carbon Dioxide 24 (22-30) mmol/L BUN 8 (7-17) mg/dL Creatinine 0.7 (0.6-1.2) mg/dL Glucose 112 H (65-100) mg/dL Calcium 8.3 L (8.4-10.2) mg/dL Adrenal panel 03/25/21 Range/Units 07:24 Sodium 140 (137-145) mmol/L Potassium 4.4 (3.6-5.0) mmol/L Chloride 106.3 (98-107) mmol/L Carbon Dioxide 24 (22-30) mmol/L BUN 8 (7-17) mg/dL Creatinine 0.7 (0.6-1.2) mg/dL Glucose 112 H (65-100) mg/dL Calcium 8.3 L (8.4-10.2) mg/dL
== END 2021-03-25 12:59 | disposition home or self-care (01) | DRG 343 ==
LOC: ED 01:45 → 3A 06:37
PROVIDERS: ADMIT Internal Medicine Geriatric Medicine; ATTEND Hospitalist
PROC: 0DTJ4ZZ Resection of Appendix, Percutaneous Endoscopic Approach (ICD-10-PCS; principal; 2021-03-24)
DX: K35.80 Unspecified acute appendicitis (principal); K21.9 Gastro-esophageal reflux disease without esophagitis
CPT/HCPCS: 36415; 74177; 80048; 80076; 81001; 83690; 84703; 85025; 88304; G0378; J1100; J1644; J1885; J2270; J2405; J2543; J2704; J3010; J7030; J7120; Q9967